=== PATIENT | male | born 1935 | race Caucasian/White ===

== ENCOUNTER 2018-04-29 22:14 | Inpatient (IN) | payer MEDICARE, OTHER, SELFPAY ==
[2018-04-29 22:23] VITALS: BP 155/84; PULSE 75; RESP 16; TEMP 36.6; O2SAT 97; BMI 24.3
--- NOTE | 2018-04-29 22:40 | DI.RAD.S_ITS ---
PROCEDURE: XR ACUTE ABDOMEN SERIES INDICATIONS: Abdominal pain TECHNIQUE: One view chest and two views of the abdomen were acquired. COMPARISON: [facility], CT, CT ABDOMEN PELVIS W CON, 04/29/2018, 23:28. [facility], CR, ABDOMEN ACUTE SERIES, 06/18/2009, 0:12. FINDINGS: Surgical changes and devices: None. Chest: Lungs are clear. Heart size is normal. No pleural effusions. No pneumoperitoneum. Abdomen: Dilated small bowel loops are noted in keeping with bowel obstruction. Please see comparison CT abdomen/pelvis for further characterization. No evidence of free air. Numerous surgical clips project in the pelvis. There is gastric distention. Bones: No suspicious bony lesions. Bilateral moderate hip joint degeneration and discogenic changes in the spine. There is lateral curvature of the spine. IMPRESSION: Small bowel obstruction. Dictated by: Tom Prather M.D. on 04/30/2018 at 9:45 Approved by: Tom Prather M.D. on 04/30/2018 at 9:47
[2018-04-29 22:51] VITALS: BP 173/81; PULSE 66; RESP 14; O2SAT 96
[2018-04-29] MEDS: SODIUM CHLORIDE 0.9% 1,000 ML 150 ML IV (23:00)
[2018-04-29 23:03] LABS: Add Manual Diff / Slide Review NO; Basophils Percent Auto 0.4 % (0-2); Eosinophils Percent Auto 1.2 % (2-4); Hematocrit 41.1 % (41-53); Hemoglobin 13.9 g/dL (13.5-17.5); Lymphocytes Percent Auto 19.3 % (25-40); Mean Corpuscular HGB Conc 33.8 % (30-36); Mean Corpuscular Hemoglobin 29.9 PG (26-34); Mean Corpuscular Volume 88.4 fL (80-100); Monocytes Percent Auto 7.6 % (3-14); Neutrophils Absolute Auto 7900 /uL (3000-5900); Neutrophils Percent Auto 71.5 % (50-75); Platelet Count 225 X10^3/uL (150-400); Red Blood Cell Count 4.64 X10^6/uL (4.5-5.9); Red Cell Distribution Width 12.4 % (11.6-14.8); White Blood Cell Count 11.1 X10^3/uL (4.5-11.0)
[2018-04-29 23:08] LABS: Alanine Aminotransferase 27 IU/L (21-72); Albumin 4.3 g/dL (3.5-5.0); Albumin Globulin Ratio 1.5 (1.0-2.8); Alkaline Phosphatase 40 U/L (38-126); Aspartate Aminotransferase 17 IU/L (17-59); BUN Creatinine Ratio 22.2 (6-22); Bilirubin Total 0.8 mg/dL (0.2-1.3); Blood Urea Nitrogen 20 mg/dL (9-20); Calcium 9.7 mg/dL (8.4-10.2); Carbon Dioxide 31 mmol/L (22-32); Chloride 98 mmol/L (98-107); Estimated Glomerular Filt Rate > 60.0 mL/min (>60); Globulin 2.9 g/dL (1.7-4.1); Glucose 100 mg/dL (80-110); HEMOLYSIS < 15 (0-50); Lipase 124 U/L (23-300); Potassium 3.6 mmol/L (3.4-5.1); Sodium 139 mmol/L (137-145); Total Protein 7.2 g/dL (6.3-8.2)
--- NOTE | 2018-04-29 23:27 | DI.CT.S_ITS ---
PROCEDURE: CT ABDOMEN PELVIS W CON INDICATIONS: severe abdominal pain, distended TECHNIQUE: After the administration of intravenous contrast, 5 mm thick sections acquired from the diaphragm to the symphysis. 5 mm coronal and sagittal reformats were acquired. For radiation dose reduction, the following was used: automated exposure control, adjustment of mA and/or kV according to patient size. COMPARISON: [facility], CT, ABDOMEN/PELVIS WITH CONTRAST, 02/13/2014, 9:03. FINDINGS: Image quality: Excellent. ABDOMEN: Lung bases: Lung bases are clear. Heart size is normal. Solid organs: Liver is normal in size and enhancement. Gallbladder contains a 5 mm minimally radiopaque calculus seen on image 20 otherwise unremarkable. Biliary system is non dilated. Pancreas enhances normally. Spleen is normal in size and enhancement. No adrenal nodules. Kidneys demonstrate normal size and enhancement, without hydronephrosis. Subcentimeter presumed left renal cyst although technically too small to characterize definitively. Peritoneum and bowel: The stomach is markedly distended. No free fluid or free air. There are multiple dilated small bowel loops and scattered air-fluid levels. These measure up to approximately 4.0 cm. An exact transition point is not identified although there are some relatively decompressed ileal bowel loops. Incidental duodenal diverticulum seen. The colon is relatively decompressed. Nodes and vessels: No retroperitoneal or mesenteric adenopathy by size criteria. Aorta and inferior vena cava are normal in size. Miscellaneous: Diastasis of the rectus abdominal muscles and broad-based laxity of the anterior abdominal wall and broad-based midline ventral hernia which contains bowel loops. PELVIS: Genitourinary: Bladder wall thickness is normal. Miscellaneous: Fat-containing bilateral inguinal hernias, right greater than left. No pelvic adenopathy. Bones: No suspicious bony lesions. No vertebral body compression fractures. IMPRESSION: Small bowel obstruction. The exact transition site is unclear. Diastasis of the rectus abdominis muscles with broad based small bowel hernia although this is grossly unchanged since 02/13/14. Unremarkable appendix. Incidental cholelithiasis. Additional chronic and incidental findings as above. Dictated by: Tom Prather M.D. on 04/30/2018 at 9:37 Approved by: Tom Prather M.D. on 04/30/2018 at 9:45
[2018-04-29 23:40] VITALS: PULSE 66; RESP 12; O2SAT 96
[2018-04-30] VITALS (8 sets, daily range): BP systolic 146–167; BP diastolic 69–101; PULSE 63–88; RESP 12–18; TEMP 36.4–36.9; O2SAT 93–99; BMI 22.2
[2018-04-30] MEDS: HYDROMORPHONE 1 MG INJ 0.5 MG IV (00:24)
--- NOTE | 2018-04-30 00:33 | ED_ITS ---
HPI - Abdominal Pain General Chief Complaint: Abdominal Pain Stated Complaint: STATES BOWEL OBSTRUCTION Time Seen by Provider: 04/29/18 22:20 Source: patient Mode of arrival: ambulatory Limitations: no limitations History of Present Illness HPI narrative: 82-year-old male presents to the emergency department with chief complaint of gradually worsening abdominal pain over the course of the day. His last bowel movement was yesterday. He admits to nausea but denies vomiting. He states that eating makes the pain worse. He denies fever or chills. MD complaint: abdominal pain Onset (ago): hour(s) Pain Consistency: constant Location: diffuse Severity: moderate Quality: cramping Radiation: none Migration to: no migration Relieving factors: nothing Exacerbating factors: nothing Related Data Home Medications Medication Instructions Recorded Confirmed alprazolam 0.5 mg PO HSP PRN 04/29/18 04/29/18 magnesium hydroxide [Milk of 5 ml PO TID PRN 04/29/18 04/29/18 Magnesia] metoprolol tartrate 12.5 mg PO BID 04/29/18 04/29/18 valsartan 80 mg PO DAILY 04/29/18 04/29/18 Previous Rx's Medication Instructions Recorded atorvastatin [Lipitor] 20 mg PO HS #90 tab 05/03/17 diltiazem HCl 180 mg PO QAM #90 cap 12/22/17 Allergies Allergy/AdvReac Type Severity Reaction Status Date / Time fluconazole Allergy Severe ANGIOEDEMA Verified 04/29/18 22:23 ciprofloxacin Allergy Mild RASH Verified 04/29/18 22:23 fluticasone Allergy Mild Verified 04/29/18 22:23 sulfamethoxazole Allergy Mild Verified 04/29/18 22:23 [From Bactrim] trimethoprim [From Bactrim] Allergy Mild Verified 04/29/18 22:23 metronidazole AdvReac Intermediate NEUROPATHY, Verified 04/29/18 22:23 PAIN IN EXTREMITIES cefuroxime AdvReac Mild PALPITATION Verified 04/29/18 22:23 S Review of Systems Review of Systems All systems reviewed & are unremarkable except as noted in HPI and below Constitutional Denies chills, Denies fever(s), Denies lethargy and Denies weakness Eyes Denies change in vision, Denies eye discharge, Denies irritation and Denies loss of vision ENT Ears, Nose, Mouth, and Throat: Denies change in voice, Denies neck pain and Denies sore throat Cardiovascular Denies chest pain, Denies irregular heart rhythm, Denies lightheadedness, Denies palpitations, Denies dyspnea, Denies dyspnea on exertion and Denies orthopnea Respiratory Denies cough, Denies dyspnea, Denies dyspnea on exertion and Denies wheezing Gastrointestinal Gastrointestinal: Reports abdominal pain, Denies change in bowel habits, Denies diarrhea, Reports nausea and Denies vomiting Comments: Patient states he is not passing gas Genitourinary Denies hematuria, Denies flank pain, Denies urinary incontinence and Denies urinary urgency Musculoskeletal Denies neck pain Integumentary/Breasts Denies pruritus, Denies erythema, Denies rash and Denies wounds Neurologic Denies confusion, Denies loss of vision and Denies weakness Psychiatric Denies anxiety, Denies confusion, Denies depression, Denies homicidal ideation and Denies suicidal ideation Endocrine Denies palpitations Hematologic/Lymphatic Denies easy bruising Allergic/Immunologic Denies wheezing [facility] Medical History Pacemaker (Acute ~12/16/17) Surgical History Status post colectomy Social History Smoking Status: Former smoker Exam Narrative Exam Narrative: Pleasant 82-year-old male obviously uncomfortable, clutching his abdomen Initial Vital Signs Initial Vital Signs: Vital Signs Temperature 97.8 F 04/29/18 22:23 Pulse Rate 75 04/29/18 22:23 Respiratory Rate 16 04/29/18 22:23 Blood Pressure 155/84 H 04/29/18 22:23 Pulse Oximetry 97 04/29/18 22:23 Const General: cooperative, well developed and in distress Nutritional Appearance: well nourished Orientation: alert, awake, oriented x3 and not confused [facility] Head: normocephalic and atraumatic Ears: external ears normal and TM's normal bilaterally Nose: external nose normal and No nasal discharge Face and sinus: sinuses nontender, face symmetric, no sinus tenderness and No dry mucous membranes Mouth: oral mucosae normal and moist mucous membranes Teeth and gingiva: dentition normal Throat: tonsils normal and uvula midline Chest Chest: normal inspection of the chest Cardio Rate: regular rate Rhythm: regular rhythm Heart Sounds: no click, no gallops, no murmurs and no rubs Pulses: normal peripheral pulses GI Inspection: distended Palpation: soft, no hepatosplenomegaly, guarding, No pulsatile mass and tender Auscultation: high-pitched sounds Back/Spine/Pelvis Back: No CVA tenderness Cervical Spine: cervical ROM normal and No pain with cervical ROM Thoracic/Lumbar Spine: thoracic and lumbar spine normal to inspection Course Orders Ordered: ED Orders 04/29/18 22:40 XR acute abdomen series Stat 04/29/18 22:45 Complete Blood Count AUTO DIFF Stat Comprehensive Metabolic Panel Stat Lipase Stat 04/29/18 23:27 CT abdomen pelvis w con Stat Sodium Chloride (Normal Saline 0.9%) 1,000 mls @ 150 mls/hr IV CONT JIAN Last Admin: 04/29/18 23:00 Dose: 150 mls/hr Discontinued Medications Hydromorphone HCl (Dilaudid) 0.5 mg IV NOW ONE Stop: 04/30/18 00:24 Last Admin: 04/30/18 00:24 Dose: 0.5 mg Reevaluation(s) Reevaluation #1: Patient has NG tube placed and feels much better Consultations Consultation #1: Dr. Stallworth is happy to accept on her service Vital Signs - 8 hr 04/29/18 22:23 04/29/18 22:51 04/29/18 23:40 Temperature 97.8 F Pulse Rate 75 66 66 Respiratory Rate 16 14 12 Blood Pressure 155/84 H Blood Pressure [Right Arm] 173/81 H Pulse Oximetry 97 96 96 04/30/18 00:25 04/30/18 01:10 Temperature Pulse Rate 68 63 Respiratory Rate 12 12 Blood Pressure Blood Pressure [Right Arm] 155/76 H 156/72 H Pulse Oximetry 98 93 MDM - Abdominal Pain Differential Diagnosis Differential diagnosis: Likely abdominal pain, acute appendicitis, calculus of kidney, constipation, diverticulitis, gastroenteritis, pancreatitis and small bowel obstruction Medical Records Attestation: I reviewed the patient's medical records. Lab Data Attestation: I reviewed the patient's lab results. Result diagrams: 04/29/18 22:45 04/29/18 22:45 Lab Results 04/29/18 04/29/18 Range/Units 22:45 22:45 WBC 11.1 H (4.5-11.0) X10^3/uL RBC 4.64 (4.5-5.9) X10^6/uL Hgb 13.9 (13.5-17.5) g/dL Hct 41.1 (41-53) % MCV 88.4 (80-100) fL MCH 29.9 (26-34) PG MCHC 33.8 (30-36) % RDW 12.4 (11.6-14.8) % Plt Count 225 (150-400) X10^3/uL Neut % (Auto) 71.5 (50-75) % Lymph % (Auto) 19.3 L (25-40) % [place] % (Auto) 7.6 (3-14) % Eos % (Auto) 1.2 L (2-4) % Baso % (Auto) 0.4 (0-2) % Neut # (Auto) 7900 H (8005-5688) /uL Sodium 139 (137-145) mmol/L Potassium 3.6 (3.4-5.1) mmol/L Chloride 98 (98-107) mmol/L Carbon Dioxide 31 (22-32) mmol/L BUN 20 (9-20) mg/dL Creatinine 0.90 (0.66-1.25) mg/dL Estimated GFR > 60.0 (>60) mL/min BUN/Creatinine Ratio 22.2 H (6-22) Glucose 100 (80-110) mg/dL Calcium 9.7 (8.4-10.2) mg/dL Total Bilirubin 0.8 (0.2-1.3) mg/dL AST 17 (17-59) IU/L ALT 27 (21-72) IU/L Alkaline Phosphatase 40 (38-126) U/L Total Protein 7.2 (6.3-8.2) g/dL Albumin 4.3 (3.5-5.0) g/dL Globulin 2.9 (1.7-4.1) g/dL Albumin/Globulin Ratio 1.5 (1.0-2.8) Lipase 124 (23-300) U/L Imaging Data CT scan - abdomen: Radiologist's impression: Findings consistent was distal small-bowel obstruction, suspecting an obstructing adhesion the pelvis along the anterior peritoneal wall. Discharge Plan Departure Patient Disposition: Admitted As Inpatient Clinical Impression: Partial small bowel obstruction
--- NOTE | 2018-04-30 00:53 | PC.NURSE ---
NGT to left nare. Tolerated well. Placement checked by auscultation and + gastric contents.
--- NOTE | 2018-04-30 04:29 | PC.ADMIT ---
[email or web address] Admission Note: The patient,Conrado Hobbs,82 y/o, was given written information regarding hospital policies, unit procedures and contact persons. Patient's smoking status: Former smoker. Vital Signs - 8 hr 04/29/18 22:23 04/29/18 22:51 04/29/18 23:40 Temperature 97.8 F Pulse Rate 75 66 66 Respiratory Rate 16 14 12 Blood Pressure 155/84 H Blood Pressure [Right Arm] 173/81 H Pulse Oximetry 97 96 96 04/30/18 00:25 04/30/18 01:10 04/30/18 02:12 Temperature Pulse Rate 68 63 64 Respiratory Rate 12 12 15 Blood Pressure Blood Pressure [Right Arm] 155/76 H 156/72 H 167/69 H Pulse Oximetry 98 93 95 04/30/18 03:20 Temperature 98.4 F Pulse Rate 75 Respiratory Rate 18 Blood Pressure 158/89 H Blood Pressure [Right Arm] Pulse Oximetry
--- NOTE | 2018-04-30 04:29 | PC.ADMIT ---
[email or web address] N 1[address] STPt Admission Note: The patient,Conrado Hobbs,82 y/o, was given written information regarding hospital policies, unit procedures and contact persons. Patient's smoking status: Former smoker. Vital Signs - 8 hr 04/29/18 22:23 04/29/18 22:51 04/29/18 23:40 Temperature 97.8 F Pulse Rate 75 66 66 Respiratory Rate 16 14 12 Blood Pressure 155/84 H Blood Pressure [Right Arm] 173/81 H Pulse Oximetry 97 96 96 04/30/18 00:25 04/30/18 01:10 04/30/18 02:12 Temperature Pulse Rate 68 63 64 Respiratory Rate 12 12 15 Blood Pressure Blood Pressure [Right Arm] 155/76 H 156/72 H 167/69 H Pulse Oximetry 98 93 95 04/30/18 03:20 Temperature 98.4 F Pulse Rate 75 Respiratory Rate 18 Blood Pressure 158/89 H Blood Pressure [Right Arm] Pulse Oximetry Pt arrived to room 215 from the ER via stretcher, able to transfer himself to the bed indep. Oriented x3, reports mild dementia. Pt arrived with an NG tube, once put to LIS suction appr 250ml out immediately of light brown/yellow drainage. Abdomen is soft and distended, active BT's, denies flatus and nausea. Aware that a Dilaudid CHIEF KNOWLEDGE OFFICER is available, pt denies pain and does not think he needs a CHIEF KNOWLEDGE OFFICER at this time. RA sats 95%. Pt reports that he ambulates indep at home, denies falls. Pt oriented to room and call light, bed alarm on for safety.
[2018-04-30] MEDS: SODIUM CHLORIDE 0.9% 1,000 ML 150 ML IV (06:12)
--- NOTE | 2018-04-30 09:26 | P.HP_ITS ---
History of Present Illness Date Patient Seen: 04/30/18 Time Patient Seen: 09:15 Chief complaint: STATES BOWEL OBSTRUCTION Narrative: 82-year-old man without a primary care provider presented with a 1 day history of abdominal pain and nausea without vomiting, fevers or chills. His last bowel movement was 2 days ago. He denies any recent precipitating factors, though states he has had bowel obstructions in the past related to his previous left colon resection. He reports feeling much improved over night. Abdomen CT reported findings consistent was distal small-bowel obstruction, suspecting an obstructing adhesion the pelvis along the anterior peritoneal wall. Past medical history Hypertension Hyperlipidemia Pacemaker placement Status post colectomy Patient History Medical History Pacemaker (Acute ~12/16/17) Surgical History Status post colectomy Family & Social History Family History: Reviewed 04/30/18 by Conrado Felton MD Social History: household members other Prior Living Arrangements Custodial Facility Safety & Behavioral: Feels Safe in Current Yes Environment Been Physically Hurt or No Threatened By a Person Suicidal Ideation Description None Tobacco & Substance use: Smoking Status Former smoker alcohol intake frequency 0-2 drinks per day Substance Use Type does not use Meds Home Medications Medication Instructions Recorded Confirmed Type atorvastatin [Lipitor] 20 mg PO HS #90 tab 05/03/17 04/29/18 Rx diltiazem HCl 180 mg PO QAM #90 cap 12/22/17 04/29/18 Rx alprazolam 0.5 mg PO HSP PRN 04/29/18 04/29/18 History magnesium hydroxide [Milk of 5 ml PO TID PRN 04/29/18 04/30/18 History Magnesia] metoprolol tartrate 12.5 mg PO BID 04/29/18 04/29/18 History valsartan 80 mg PO DAILY 04/29/18 04/29/18 History Allergies Allergy/AdvReac Type Severity Reaction Status Date / Time fluconazole Allergy Severe ANGIOEDEMA Verified 04/29/18 22:23 ciprofloxacin Allergy Mild RASH Verified 04/29/18 22:23 fluticasone Allergy Mild Verified 04/29/18 22:23 sulfamethoxazole Allergy Mild Verified 04/29/18 22:23 [From Bactrim] trimethoprim [From Bactrim] Allergy Mild Verified 04/29/18 22:23 metronidazole AdvReac Intermediate NEUROPATHY, Verified 04/29/18 22:23 PAIN IN EXTREMITIES cefuroxime AdvReac Mild PALPITATION Verified 04/29/18 22:23 S Review of Systems Review of Systems All systems reviewed & are unremarkable except as noted in HPI and below Exam Vital Signs (past 8 hours): - 04/30/18 02:12 04/30/18 03:20 04/30/18 07:00 Temperature 98.4 F 97.5 F L Pulse Rate 64 75 84 Respiratory Rate 15 18 16 Blood Pressure 158/89 H 157/83 H Blood Pressure [Right Arm] 167/69 H Pulse Oximetry 95 96 Oxygen Delivery Method Room Air Narrative Exam Narrative: General: Alert, pleasant male, appears comfortable HEENT: Pupils equal round reactive, extraocular movements intact, mucous membranes pink and moist Neck: Supple Lungs: Clear to auscultation Cardiac: Regular rate and rhythm Abdomen: Soft, mildly distended, though patient states much improved overnight , active bowel tones, nontender, no guarding, rebound or rigidity Extremities: Without edema Neurologic: Alert, oriented, appropriate, no focal neurologic deficits Dermatologic: No rash or skin lesions Objective Labs Result Diagrams: 04/29/18 22:45 04/29/18 22:45 Labs: Laboratory Results - last 24 hr 04/29/18 04/29/18 22:45 22:45 WBC 11.1 H RBC 4.64 Hgb 13.9 Hct 41.1 MCV 88.4 MCH 29.9 MCHC 33.8 RDW 12.4 Plt Count 225 Neut % (Auto) 71.5 Lymph % (Auto) 19.3 L [place] % (Auto) 7.6 Eos % (Auto) 1.2 L Baso % (Auto) 0.4 Neut # (Auto) 7900 H Sodium 139 Potassium 3.6 Chloride 98 Carbon Dioxide 31 BUN 20 Creatinine 0.90 Estimated GFR > 60.0 BUN/Creatinine Ratio 22.2 H Glucose 100 Calcium 9.7 Total Bilirubin 0.8 AST 17 ALT 27 Alkaline Phosphatase 40 Total Protein 7.2 Albumin 4.3 Globulin 2.9 Albumin/Globulin Ratio 1.5 Lipase 124 Assessment & Plan Plan: Assessment/Plan Narrative: 1. Partial small bowel obstruction. The patient reports feeling significantly better. We will remove his nasogastric tube, monitor and possibly advance to a clear liquid diet later this morning is doing well. 2. Hypertension. Continue routine medication. 3. Hyperlipidemia. Continue routine medication. 4. Disposition: Admit to observation status. Possible discharge home tomorrow if doing well.
[2018-04-30] MEDS: dilTIAZem CD 180 MG CAP PO (10:38)
--- NOTE | 2018-04-30 10:45 | PC.NURSE ---
NT TUBE REMOVED PER MD ORDER AT 0930. PER MD MAY HAVE CLEAR LIQUID DIET STARTING WITH LUNCH TODAY. PT AWARE.
--- NOTE | 2018-04-30 13:13 | CM.DANOTE ---
DCP: Case received, EMR reviewed and met with patient. Introduced self and role. DCP template completed with info currently available. Patient is an 82 year old male who admitted yesterday evening to the care of hospitalist team. PCP: Patient does not have a provider at this time, but did have Dr. Hendrix, and since he retired, patient did not pursue new physician. Payer: confirmed: Medicare/[employer]. Patient carries diagnosis of small bowel obstruction, and has had history of this before. Resides at [facility], and is planning on returning there after discharge. Patient stated that he had taken a taxi last pm to get to hospital from [facility], secondary to abdominal pain. P: DCP will check in tomorrow, as far as discharging back to [facility] home. Did speak to daughter, she is now living in [place]. Christiane Martin RN/Minister Of Religion
--- NOTE | 2018-04-30 15:29 | CM.DPC ---
DCP Cont: Met with daughter in patient's room. Stated that he should be able to return to [facility], but may be thinking about moving to [facility]. Daughter now lives in [place], is a retired nurse who used to reside in [place]. P: Will check in tomorrow, and consult with hospitalist team if patient is to be discharged tomorrow. Christiane Martin RN/air traffic control manager
[2018-04-30] MEDS: METOPROLOL 12.5 MG TABLET PO (19:55)
[2018-04-30] MEDS: ATORVASTATIN 20 MG TABLET PO (19:55)
[2018-05-01 00:20] VITALS: BP 146/77; PULSE 71; RESP 17; TEMP 36.8; O2SAT 95
[2018-05-01] MEDS: ACETAMINOPHEN 325 MG TABLET 650 MG PO (02:48)
[2018-05-01 05:13] VITALS: BP 145/72; PULSE 66; RESP 17; TEMP 36.4; O2SAT 93
[2018-05-01 05:56] LABS: Add Manual Diff / Slide Review NO; Basophils Percent Auto 0.6 % (0-2); Eosinophils Percent Auto 4.1 % (2-4); Hematocrit 38.1 % (41-53); Hemoglobin 12.9 g/dL (13.5-17.5); Mean Corpuscular HGB Conc 33.8 % (30-36); Mean Corpuscular Hemoglobin 30.3 PG (26-34); Mean Corpuscular Volume 89.6 fL (80-100); Monocytes Percent Auto 11.3 % (3-14); Neutrophils Absolute Auto 3700 /uL (3000-5900); Platelet Count 184 X10^3/uL (150-400); Red Blood Cell Count 4.25 X10^6/uL (4.5-5.9); Red Cell Distribution Width 12.4 % (11.6-14.8); White Blood Cell Count 6.6 X10^3/uL (4.5-11.0)
[2018-05-01 06:12] LABS: BUN Creatinine Ratio 12.9 (6-22); Blood Urea Nitrogen 9 mg/dL (9-20); Calcium 8.3 mg/dL (8.4-10.2); Carbon Dioxide 29 mmol/L (22-32); Chloride 104 mmol/L (98-107); Estimated Glomerular Filt Rate > 60.0 mL/min (>60); Glucose 101 mg/dL (80-110); HEMOLYSIS < 15 (0-50); Potassium 3.6 mmol/L (3.4-5.1); Sodium 140 mmol/L (137-145)
[2018-05-01 07:51] VITALS: BP 153/71; PULSE 73; RESP 18; TEMP 36.6; O2SAT 99
--- NOTE | 2018-05-01 07:51 | PC.NURSE ---
Day Shift: Report received from transport operations inspector RN and care assumed by this RN. Patient pleasant, doing well. States he is hungry and wants to go home today. Patient reports having BM last shift. Denies pain. Will continue to monitor.
--- NOTE | 2018-05-01 08:09 | PM.DS.1 ---
History of Present Illness Date Patient Seen: 05/01/18 Time Patient Seen: 07:50 Chief complaint: STATES BOWEL OBSTRUCTION Narrative: 82-year-old man without a primary care provider presented with a 1 day history of abdominal pain and nausea without vomiting, fevers or chills. His last bowel movement was 2 days ago. He denies any recent precipitating factors, though states he has had bowel obstructions in the past related to his previous left colon resection. He reports feeling much improved over night. Abdomen CT reported findings consistent was distal small-bowel obstruction, suspecting an obstructing adhesion the pelvis along the anterior peritoneal wall. Discharge Providers Date of admission: 04/30/18 02:14 Primary care physician: Leonel Hendrix MD Discharge provider: Conrado Felton MD Summary Discharge Diagnosis: 1. Partial small bowel obstruction 2. Hypertension 3. Hyperlipidemia Hospital Course: The patient was admitted and started on a program of bowel rest and nasogastric tube decompression. Within hours, he started to pass flatus. His nasogastric tube was removed and IV fluids stopped, and the patient advanced to a clear liquid diet. He was feeling significantly better and by the following morning able to advance to a full liquid diet. He was interested in discharge home. No other issues arose. Status at Discharge Functional status at discharge: independent ambulation Overall status at discharge: patient is back to baseline Time Spent with Patient Less than 30 minutes Exam Vital Signs (past 8 hours): - 05/01/18 00:20 05/01/18 05:13 05/01/18 07:51 Temperature 98.3 F 97.6 F 97.9 F Pulse Rate 71 66 73 Respiratory Rate 17 17 18 Blood Pressure 146/77 H 145/72 H 153/71 H Pulse Oximetry 95 93 99 Oxygen Delivery Method Room Air Narrative Exam Narrative: General: Patient appears comfortable, in good spirits HEENT: Mucous membranes pink and moist Neck: Supple Lungs: Clear to auscultation Cardiac: Regular rate and rhythm Abdomen: Soft, nontender, nondistended, active bowel sounds Extremities: Without edema Objective Labs Result Diagrams: 05/01/18 05:40 05/01/18 05:40 Labs: Laboratory Results - last 24 hr 05/01/18 05/01/18 05:40 05:40 WBC 6.6 RBC 4.25 L Hgb 12.9 L Hct 38.1 L MCV 89.6 MCH 30.3 MCHC 33.8 RDW 12.4 Plt Count 184 Neut % (Auto) 57.0 Lymph % (Auto) 27.0 [place] % (Auto) 11.3 Eos % (Auto) 4.1 H Baso % (Auto) 0.6 Neut # (Auto) 3700 Sodium 140 Potassium 3.6 Chloride 104 Carbon Dioxide 29 BUN 9 Creatinine 0.70 Estimated GFR > 60.0 BUN/Creatinine Ratio 12.9 Glucose 101 Calcium 8.3 L Discharge Plan Discharge Plan Patient Disposition: Home, Self-Care Provider Discharge Instructions Diet: Diet as Tolerated and Regular Diet comment: Advance from soft low fiber foods to usual diet over 1 week Wound Care Report to your healthcare provider any signs of infection, such as:: chills, fever, night sweats and increased pain Discharge Data Primary Care Provider: Leonel Hendrix Attending Provider: Estephanie Stallworth Admit Date/Time: 04/30/18 02:14
[2018-05-01] MEDS: dilTIAZem CD 180 MG CAP PO (08:34)
[2018-05-01] MEDS: VALSARTAN 80 MG TABLET PO (08:34)
[2018-05-01] MEDS: METOPROLOL 12.5 MG TABLET PO (08:34)
--- NOTE | 2018-05-01 12:04 | CM.DPC ---
DCP Cont: Patient is to be discharged today back home to [facility], as patient is back to baseline. P: Daughter will be here to transport patient. Christiane Martin RN/Putty And Caulking Supervisor
== END 2018-05-01 10:30 | disposition home or self-care (01) | DRG 390 ==
LOC: ED 04-30 00:33 → AC 04-30 02:16
PROVIDERS: Internal Medicine; Admitting Provider Internal Medicine; Emergency Provider Emergency Medicine; Family Provider Family Medicine; PCP Family Medicine; Visit Provider Internal Medicine
DX: K56.600 Partial intestinal obstruction, unspecified as to cause (principal); I10 Essential (primary) hypertension; E78.5 Hyperlipidemia, unspecified; Z95.0 Presence of cardiac pacemaker; Z87.891 Personal history of nicotine dependence
CPT/HCPCS: 36415; 36591; 74022; 74177; 80048; 80053; 83690; 85025; 93005; 96361; 96374; 96375; 99283; 99285; J1170; Q9967

== ENCOUNTER → 2018-07-14 15:02 | Outpatient (CLI) | payer MEDICARE, OTHER, SELFPAY ==
[2018-04-30 03:02] VITALS: BMI 22.2
[2018-07-14 16:28] LABS: Alanine Aminotransferase 24 IU/L (21-72); Albumin 4.1 g/dL (3.5-5.0); Albumin Globulin Ratio 1.5 (1.0-2.8); Alkaline Phosphatase 39 U/L (38-126); Aspartate Aminotransferase 21 IU/L (17-59); Bilirubin Total 0.6 mg/dL (0.2-1.3); Blood Urea Nitrogen 23 mg/dL (9-20); Calcium 9.4 mg/dL (8.4-10.2); Carbon Dioxide 33 mmol/L (22-32); Chloride 100 mmol/L (98-107); Estimated Glomerular Filt Rate > 60.0 mL/min (>60); Globulin 2.8 g/dL (1.7-4.1); Glucose 95 mg/dL (80-110); HEMOLYSIS < 15 (0-50); Sodium 143 mmol/L (137-145); Total Protein 6.9 g/dL (6.3-8.2)
== END ==
PROVIDERS: Visit Provider Nurse Practitioner Family
DX: I10 Essential (primary) hypertension (principal); R60.9 Edema, unspecified
CPT/HCPCS: 36415; 80053

== ENCOUNTER 2018-08-16 08:19 | Emergency (ER) | payer MEDICARE, OTHER, SELFPAY ==
[2018-04-30 03:02] VITALS: BMI 22.2
[2018-08-16 08:25] VITALS: BP 166/88; PULSE 85; RESP 13; TEMP 36.6; O2SAT 99
--- NOTE | 2018-08-16 09:30 | ED_ITS ---
HPI - Abdominal Pain General Chief Complaint: Abdominal Pain Stated Complaint: Abdominal Pain Time Seen by Provider: 08/16/18 08:27 Source: patient Mode of arrival: ambulatory Limitations: no limitations History of Present Illness HPI narrative: 83-year-old male here for evaluation of left-sided abdominal pain. Patient states he has a history of diverticulitis. Has had a descending colon resection with reanastomosis. He states that over the past month he has had increasing pain in his left side with eating. It does not seem to hurt him when he drinks fluids. No tenderness to palpation. No change in bowel habits. No urinary symptoms. No fevers. Related Data Home Medications Medication Instructions Recorded Confirmed alprazolam 0.5 mg PO HSP PRN 04/29/18 08/16/18 magnesium hydroxide [Milk of 5 ml PO TID PRN 04/29/18 08/16/18 Magnesia] metoprolol tartrate 12.5 mg PO BID 04/29/18 08/16/18 valsartan 80 mg PO DAILY 04/29/18 08/16/18 furosemide 20 mg tablet 20 mg PO DAILY 07/14/18 08/16/18 zolpidem 1 tab PO BEDTIME 08/16/18 08/16/18 Previous Rx's Medication Instructions Recorded atorvastatin [Lipitor] 20 mg PO HS #90 tab 05/03/17 diltiazem HCl 180 mg PO QAM #90 cap 12/22/17 amoxicillin 875 mg-potassium 1 tab PO BID 7 Days #14 tab 08/10/18 clavulanate 125 mg tablet Allergies Allergy/AdvReac Type Severity Reaction Status Date / Time fluconazole Allergy Severe ANGIOEDEMA Verified 08/04/18 08:54 ciprofloxacin Allergy Mild RASH Verified 08/04/18 08:54 fluticasone Allergy Mild Verified 08/04/18 08:54 sulfamethoxazole Allergy Mild Verified 08/04/18 08:54 [From Bactrim] trimethoprim [From Bactrim] Allergy Mild Verified 08/04/18 08:54 metronidazole AdvReac Intermediate NEUROPATHY, Verified 08/04/18 08:54 PAIN IN EXTREMITIES cefuroxime AdvReac Mild PALPITATION Verified 08/04/18 08:54 S Review of Systems Constitutional Denies fever(s) and Denies headache(s) ENT Ears, Nose, Mouth, and Throat: Denies vertigo and Denies headache(s) Cardiovascular Denies chest pain, Denies syncope and Denies dyspnea Respiratory Denies dyspnea Gastrointestinal Gastrointestinal: Reports abdominal pain, Denies change in stool character, Denies nausea and Denies vomiting Genitourinary Denies dysuria Musculoskeletal Denies myalgias and Denies arthralgias Integumentary/Breasts Denies lesions and Denies rash Neurologic Denies vertigo, Denies syncope and Denies headache(s) Hematologic/Lymphatic Denies easy bleeding and Denies easy bruising [facility] Medical History Pacemaker (Chronic ~12/16/17) Diverticulitis (Acute) Surgical History Status post colectomy Social History household members: other Smoking Status: Former smoker Exam Initial Vital Signs Initial Vital Signs: Vital Signs Temperature 98 F 08/16/18 08:25 Pulse Rate 85 08/16/18 08:25 Respiratory Rate 13 08/16/18 08:25 Blood Pressure 166/88 H 08/16/18 08:25 Pulse Oximetry 99 08/16/18 08:25 Const General: cooperative and comfortable Orientation: alert, awake and oriented x3 HENMT Head: normal to inspection and normocephalic Resp Effort & Inspection: normal respiratory effort Auscultation: clear to auscultation bilaterally Cardio Rate: regular rate Rhythm: regular rhythm GI Inspection: non-distended Palpation: soft, No firm, No guarding and No tender Skin Lesions: no lesions Rashes: no rashes Neuro General: alert, awake and oriented x3 Cognition: normal cognition Speech: speech normal Motor: muscle tone normal throughout Sensory Exam: no sensory deficits noted Extrem General: normal to inspection and capillary refill normal Psych Appearance: grossly normal and well kempt Course Orders Ordered: ED Orders 08/16/18 09:51 Complete Blood Count AUTO DIFF Stat Comprehensive Metabolic Panel Stat Lactate (Lactic Acid) Stat Lipase Stat 08/16/18 10:17 CT abdomen pelvis w con Stat Discontinued Medications Sodium Chloride (Normal Saline 0.9%) 1,000 mls @ 1,000 mls/hr IV BOLUS ONE Stop: 08/16/18 09:43 Last Admin: 08/16/18 09:34 Dose: 1,000 mls/hr Vital Signs - 8 hr 08/16/18 08:25 08/16/18 10:13 Temperature 98 F Pulse Rate 85 70 Respiratory Rate 13 14 Blood Pressure 166/88 H Blood Pressure [Left Arm] 175/72 H Pulse Oximetry 99 98 MDM - Abdominal Pain Lab Data Attestation: I reviewed the patient's lab results. Result diagrams: 08/16/18 09:51 08/16/18 09:51 Lab Results 08/16/18 08/16/18 08/16/18 Range/Units 09:51 09:51 09:51 WBC 4.5 (4.5-11.0) X10^3/uL RBC 4.57 (4.5-5.9) X10^6/uL Hgb 13.7 (13.5-17.5) g/dL Hct 40.3 L (41-53) % MCV 88.3 (80-100) fL MCH 29.9 (26-34) PG MCHC 33.9 (30-36) % RDW 13.4 (11.6-14.8) % Plt Count 237 (150-400) X10^3/uL Neut % (Auto) 53.5 (50-75) % Lymph % (Auto) 31.9 (25-40) % [place] % (Auto) 9.7 (3-14) % Eos % (Auto) 4.4 H (2-4) % Baso % (Auto) 0.5 (0-2) % Neut # (Auto) 2400 L (9954-4229) /uL Sodium 141 (137-145) mmol/L Potassium 4.0 (3.4-5.1) mmol/L Chloride 101 (98-107) mmol/L Carbon Dioxide 29 (22-32) mmol/L BUN 13 (9-20) mg/dL Creatinine 1.00 (0.66-1.25) mg/dL Estimated GFR > 60.0 (>60) mL/min BUN/Creatinine Ratio 13.0 (6-22) Glucose 100 (80-110) mg/dL Lactate 1.3 (0.7-2.1) mmol/L Calcium 8.9 (8.4-10.2) mg/dL Total Bilirubin 0.9 (0.2-1.3) mg/dL AST 23 (17-59) IU/L ALT 33 (21-72) IU/L Alkaline Phosphatase 45 (38-126) U/L Total Protein 7.0 (6.3-8.2) g/dL Albumin 4.2 (3.5-5.0) g/dL Globulin 2.8 (1.7-4.1) g/dL Albumin/Globulin Ratio 1.5 (1.0-2.8) Lipase 91 (23-300) U/L Point of care testing: Urine Dip Bedside Urine Glucose Negative Bedside Urine Bilirubin - Negative Bedside Urine Ketone - Negative Urine Specific [place] 1.015 Bedside Urine Occult Blood - Negative Bedside Urine pH 8.0 Bedside Urine Protein - Negative Bedside Urine Urobilinogen - Negative Bedside Urine Nitrite - Negative Imaging Data CT scan - abdomen: Radiologist's impression: PROCEDURE: CT ABDOMEN PELVIS W CON INDICATIONS: Left-sided abdominal pain TECHNIQUE: After the administration of intravenous contrast, 5 mm thick sections acquired from the diaphragm to the symphysis. 5 mm coronal and sagittal reformats were acquired. For radiation dose reduction, the following was used: automated exposure control, adjustment of mA and/or kV according to patient size. COMPARISON: [facility], CT, ABDOMEN/PELVIS WITH CONTRAST, 02/13/2014, 9: 03. [facility], CR, XR ACUTE ABDOMEN SERIES, 04/29/2018, 22:33. [facility], CT, CT ABDOMEN PELVIS W CON, 04/29/2018, 23:28. FINDINGS: Image quality: Excellent. ABDOMEN: Lung bases: Lung bases are clear. Heart size is normal. There is a cardiac pacemaker. Solid organs: Mild diffuse hepatic fatty infiltration. Liver is normal in size and enhancement. Gallbladder contains a calcified gallstone. Biliary system is non dilated. Punctate calcifications in the pancreatic tail are noted. Pancreas enhances normally. Spleen is normal in size and enhancement. There is left adrenal thickening and nodularity, unchanged. Kidneys demonstrate normal size and enhancement, without hydronephrosis. Peritoneum and bowel: Bowel loops demonstrate normal wall thickness and caliber. Fluid filled colon loops are noted. There are air fluid level in transverse colon and rectum. No free fluid or air. Normal appendix. Nodes and vessels: No retroperitoneal or mesenteric adenopathy by size criteria. Aorta and inferior vena cava are normal in size. Miscellaneous: Diastases of abdomen sheath and wide-necked ventral hernia appear unchanged. PELVIS: Genitourinary: Bladder wall thickness is normal. Absence of prostate. Miscellaneous: No inguinal adenopathy. Fat containing inguinal hernias are noted. Bones: No suspicious bony lesions. No vertebral body compression fractures. Degenerative changes in lumbar spine. IMPRESSION: 1. Fluid filled colon loops are noted with multiple air-fluid levels in the transverse colon and rectum. The CT findings are nonspecific and may be secondary to gastroenteritis. There is no colonic wall thickening to suggest colitis. No small bowel obstruction. 2. Cholelithiasis. 3. Punctate calcifications of the pancreatic tail, likely sequela of chronic pancreatitis. 4. Nodularity of the left adrenal gland. 5. Stable appearance of diastases of the rectus abdominis and wide necked ventral hernia. Dictated by: Gee Hahn M.D. on 08/16/2018 at 10:31 MDM Narrative Medical decision making narrative: patient has a relatively benign abdominal exam. Does not have an elevated white blood cell count. CT scan shows a colitis. He is currently on Augmentin for presumed diverticulitis. He has 1 more day left of this medication. He states that he has been on this antibiotic for the past 3 weeks prescribed by his primary doctor. Patient states he has not been having any diarrhea. No rashes. No fevers. He states that he does take milk of magnesia every night in order to maintain regular bowel movements. He did have a regular bowel movement this morning. There is no surgical findings found on the CT scan today. He is currently on antibiotics. No recent travel. He stated he could not provide us a stool sample here in the emergency department. Will hold on further workup for now. He was given return precautions. He was instructed to contact his primary doctor to discuss further evaluation and treatment. Discharge Plan Departure Patient Disposition: Home Clinical Impression: Colitis Instructions: DI for Colitis Activity Restrictions/Additional Instructions: I would recommend you contact your primary care doctor to discuss follow-up. Make sure your increasing your fluid intake to prevent dehydration. Return to the emergency department for any new or worsening symptoms Prescriptions: No Action atorvastatin [Lipitor] 20 MG tablet 20 mg PO HS Qty: 90 RF: 3 diltiazem HCl 180 MG capsule,extended release 24hr 180 mg PO QAM Qty: 90 RF: 2 amoxicillin-pot clavulanate [Augmentin] 875-125 mg tablet 1 tab PO BID 7 Days Qty: 14 RF: 0 furosemide [Lasix] 20 mg tablet 20 mg PO DAILY RF: 0 valsartan 80 mg tablet 80 mg PO DAILY RF: 0 magnesium hydroxide [Milk of Magnesia] 400 mg/5 mL Suspension 5 ml PO TID PRN (Reason: Constipation) RF: 0 alprazolam 0.5 MG tablet 0.5 mg PO HSP PRN (Reason: anxiety / sleep) RF: 0 metoprolol tartrate 25 MG tablet 12.5 mg PO BID RF: 0 zolpidem 5 mg tablet 1 tab PO BEDTIME RF: 0
[2018-08-16] MEDS: SODIUM CHLORIDE 0.9% 1,000 ML 1000 ML IV (09:34)
[2018-08-16 10:02] LABS: Add Manual Diff / Slide Review NO; Basophils Percent Auto 0.5 % (0-2); Eosinophils Percent Auto 4.4 % (2-4); Hematocrit 40.3 % (41-53); Hemoglobin 13.7 g/dL (13.5-17.5); Lymphocytes Percent Auto 31.9 % (25-40); Mean Corpuscular HGB Conc 33.9 % (30-36); Mean Corpuscular Hemoglobin 29.9 PG (26-34); Mean Corpuscular Volume 88.3 fL (80-100); Monocytes Percent Auto 9.7 % (3-14); Neutrophils Absolute Auto 2400 /uL (3000-5900); Neutrophils Percent Auto 53.5 % (50-75); Platelet Count 237 X10^3/uL (150-400); Red Blood Cell Count 4.57 X10^6/uL (4.5-5.9); Red Cell Distribution Width 13.4 % (11.6-14.8); White Blood Cell Count 4.5 X10^3/uL (4.5-11.0)
[2018-08-16 10:13] VITALS: BP 175/72; PULSE 70; RESP 14; O2SAT 98
[2018-08-16 10:15] LABS: Alanine Aminotransferase 33 IU/L (21-72); Albumin 4.2 g/dL (3.5-5.0); Albumin Globulin Ratio 1.5 (1.0-2.8); Alkaline Phosphatase 45 U/L (38-126); Aspartate Aminotransferase 23 IU/L (17-59); Bilirubin Total 0.9 mg/dL (0.2-1.3); Blood Urea Nitrogen 13 mg/dL (9-20); Calcium 8.9 mg/dL (8.4-10.2); Carbon Dioxide 29 mmol/L (22-32); Chloride 101 mmol/L (98-107); Estimated Glomerular Filt Rate > 60.0 mL/min (>60); Globulin 2.8 g/dL (1.7-4.1); Glucose 100 mg/dL (80-110); HEMOLYSIS < 15 (0-50); Lipase 91 U/L (23-300); Sodium 141 mmol/L (137-145)
--- NOTE | 2018-08-16 10:17 | DI.CT.S_ITS ---
PROCEDURE: CT ABDOMEN PELVIS W CON INDICATIONS: Left-sided abdominal pain TECHNIQUE: After the administration of intravenous contrast, 5 mm thick sections acquired from the diaphragm to the symphysis. 5 mm coronal and sagittal reformats were acquired. For radiation dose reduction, the following was used: automated exposure control, adjustment of mA and/or kV according to patient size. COMPARISON: [facility], CT, ABDOMEN/PELVIS WITH CONTRAST, 02/13/2014, 9:03. [facility], CR, XR ACUTE ABDOMEN SERIES, 04/29/2018, 22:33. [facility], CT, CT ABDOMEN PELVIS W CON, 04/29/2018, 23:28. FINDINGS: Image quality: Excellent. ABDOMEN: Lung bases: Lung bases are clear. Heart size is normal. There is a cardiac pacemaker. Solid organs: Mild diffuse hepatic fatty infiltration. Liver is normal in size and enhancement. Gallbladder contains a calcified gallstone. Biliary system is non dilated. Punctate calcifications in the pancreatic tail are noted. Pancreas enhances normally. Spleen is normal in size and enhancement. There is left adrenal thickening and nodularity, unchanged. Kidneys demonstrate normal size and enhancement, without hydronephrosis. Peritoneum and bowel: Bowel loops demonstrate normal wall thickness and caliber. Fluid filled colon loops are noted. There are air fluid level in transverse colon and rectum. No free fluid or air. Normal appendix. Nodes and vessels: No retroperitoneal or mesenteric adenopathy by size criteria. Aorta and inferior vena cava are normal in size. Miscellaneous: Diastases of abdomen sheath and wide-necked ventral hernia appear unchanged. PELVIS: Genitourinary: Bladder wall thickness is normal. Absence of prostate. Miscellaneous: No inguinal adenopathy. Fat containing inguinal hernias are noted. Bones: No suspicious bony lesions. No vertebral body compression fractures. Degenerative changes in lumbar spine. IMPRESSION: 1. Fluid filled colon loops are noted with multiple air-fluid levels in the transverse colon and rectum. The CT findings are nonspecific and may be secondary to gastroenteritis. There is no colonic wall thickening to suggest colitis. No small bowel obstruction. 2. Cholelithiasis. 3. Punctate calcifications of the pancreatic tail, likely sequela of chronic pancreatitis. 4. Nodularity of the left adrenal gland. 5. Stable appearance of diastases of the rectus abdominis and wide necked ventral hernia. Dictated by: Gee Hahn M.D. on 08/16/2018 at 10:31 Approved by: Gee Hahn M.D. on 08/16/2018 at 10:45
[2018-08-16 10:49] LABS: Lactate (Lactic Acid) 1.3 mmol/L (0.7-2.1)
[2018-08-16 11:52] VITALS: BP 153/86; PULSE 75; RESP 14; O2SAT 98
== END 2018-08-16 11:55 | disposition home or self-care (01) ==
PROVIDERS: Emergency Provider Emergency Medicine; PCP Student in an Organized Health Care Education/Training Program
DX: K52.9 Noninfective gastroenteritis and colitis, unspecified (principal)
CPT/HCPCS: 36415; 74177; 80053; 81003; 83605; 83690; 85025; 96360; 96361; 99283; 99285; Q9967

== ENCOUNTER → 2019-03-29 14:00 | Outpatient (CLI) | payer MEDICARE, OTHER, SELFPAY ==
[2018-04-30 03:02] VITALS: BMI 22.2
--- NOTE | 2019-03-29 14:01 | DI.RAD.S_ITS ---
PROCEDURE: XR CHEST 2V INDICATIONS: Cough TECHNIQUE: 2 views of the chest were acquired. COMPARISON: [facility], CR, XR CHEST 1 VIEW, 02/18/2018, 16:50. [facility], CR, XR CHEST 2 VIEWS, 02/19/2018, 8:51. FINDINGS: Surgical changes and devices: There is a cardiac pacemaker in appropriate position. Lungs and pleura: Lungs are clear. No pleural effusions or pneumothorax. Mediastinum: Mediastinal contours are normal. Heart size is normal. Bones and chest wall: No suspicious bony abnormalities. Soft tissues appear unremarkable. IMPRESSION: No acute cardiopulmonary disease. Dictated by: Gee Hahn M.D. on 03/29/2019 at 16:45 Approved by: Gee Hahn M.D. on 03/29/2019 at 16:46
== END ==
PROVIDERS: PCP Student in an Organized Health Care Education/Training Program; Visit Provider Student in an Organized Health Care Education/Training Program
DX: R05 Cough (principal)
CPT/HCPCS: 71046

== ENCOUNTER 2019-06-13 10:43 | Emergency (ER) | payer MEDICARE, OTHER, SELFPAY ==
[2018-04-30 03:02] VITALS: BMI 22.2
[2019-06-13 10:55] VITALS: BP 175/83; PULSE 79; RESP 18; TEMP 36.5; O2SAT 97; BMI 24.4
[2019-06-13 11:00] VITALS: BP 172/79; PULSE 80; O2SAT 97
--- NOTE | 2019-06-13 11:22 | DI.RAD.S_ITS ---
PROCEDURE: XR SACRUM COCCYX MIN 2V INDICATIONS: R sacrum pain, no injury, burning R leg pain TECHNIQUE: 3 views of the sacrum and coccyx acquired. COMPARISON: None. FINDINGS: Bones: No fractures or dislocations. No suspicious bony lesions. Trace retrolithesis of L5 on S1. Soft tissues: Visualized bowel gas pattern is normal. No suspicious soft tissue densities. IMPRESSION: No visualized acute fracture or dislocation. However, if clinical concern and/or pain persist, short interval imaging followup in 7-10 days is recommended, as occult injury cannot be definitively excluded. Dictated by: Wendy Torres M.D. on 06/13/2019 at 12:00 Approved by: Wendy Torres M.D. on 06/13/2019 at 12:02
--- NOTE | 2019-06-13 12:02 | ED_ITS ---
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 Patient reports the discomfort is burning. He also reports discomfort in left sacrum area. Patient denies any trauma, fall or injury. Patient denies sacral anesthesia, incontinence, fever/ chills, rash on the back. Patient reports he is ambulatory without difficulty or weakness. Patient had tried Tylenol last night before go to bed but the discomfort woke patient up from sleep. Related Data Home Medications Medication Instructions Recorded Confirmed magnesium hydroxide [Milk of 5 ml PO TID PRN 04/29/18 06/13/19 Magnesia] metoprolol tartrate 12.5 mg PO BID 04/29/18 06/13/19 valsartan 80 mg PO DAILY 04/29/18 06/13/19 furosemide 20 mg tablet 20 mg PO DAILY 07/14/18 06/13/19 zolpidem 2.5 tab PO BEDTIME PRN 08/16/18 06/13/19 atorvastatin [Lipitor] 20 mg PO BEDTIME 06/13/19 06/13/19 melatonin 3 mg PO BEDTIME 06/13/19 06/13/19 promethazine-DM 5 ml PO Q4H PRN 06/13/19 06/13/19 Previous Rx's Medication Instructions Recorded diltiazem HCl 180 mg PO QAM #90 cap 12/22/17 albuterol sulfate 90 mcg/actuation 1 puff INHALATION Q6H PRN #6.7 gram 03/29/19 aerosol inhaler prednisone 20 mg PO BID 5 Days #10 tab 06/13/19 Allergies Allergy/AdvReac Type Severity Reaction Status Date / Time fluconazole Allergy Severe ANGIOEDEMA Verified 06/13/19 12:46 ciprofloxacin Allergy Mild RASH Verified 06/13/19 12:46 fluticasone Allergy Mild Verified 06/13/19 12:46 sulfamethoxazole Allergy Mild Verified 06/13/19 12:46 [From Bactrim] trimethoprim [From Bactrim] Allergy Mild Verified 06/13/19 12:46 metronidazole AdvReac Intermediate NEUROPATHY, Verified 06/13/19 12:46 PAIN IN EXTREMITIES cefuroxime AdvReac Mild PALPITATION Verified 06/13/19 12:46 S Review of Systems <KASH Chaudhary - Last Filed: 06/13/19 23:32> Review of Systems General: Denies fever, chills, fatigue, malaise, sweats. HEENT: Denies sinus pain, ear pain, sore throat, difficulty swallowing, dizziness. Respiratory: Denies dyspnea, cough, wheezing, hemoptysis, sputum. Cardiovascular: Denies chest pain, palpitations, orthopnea, edema. Gastrointestinal: Denies nausea, vomiting, abdominal pain, diarrhea, constipation, melena. : Denies dysuria, frequency, incontinence, hematuria, urinary retention. Musculoskeletal: See HPI Skin: Denies rash, skin lesions, or other. Neurologic: Denies weakness, headache, numbness, change in speech, confusion, seizures, incoordination. Psychiatric: No concerning psychosocial issues. 12-point review of systems is negative except for those stated above. PFSH <KASH Chaudhary - Last Filed: 06/13/19 23:32> Medical History Pacemaker (Chronic ~12/16/17) Diverticulitis (Acute) Surgical History Status post colectomy Social History household members: other Smoking Status: Former smoker Social History household members: other Smoking Status: Former smoker Exam <KASH Chaudhary - Last Filed: 06/13/19 23:32> Narrative Exam Narrative: GEN: Alert, oriented x 3, well appearing and nourished, and in no acute distress. Head: Normal cephalic, atraumatic. No scalp or temporal tenderness, palpable mass or rash. EYES: Pupils are equal, round, and reactive to light and accommodation. Extraocular muscles are intact bilaterally. There is no subconjunctival hemorrhage, exudate and sclera non-icteric. ENT: Hearing grossly intact. Nose without bleeding, purulent discharge. Mucous membrane moist, no mucosal lesion. Throat without erythema, tonsillar hypertrophy or exudate. Uvula in midline, airway patent. Neck: Trachea in midline. No JVD, non-tender without lymphadenopathy. No masses or thyroid megaly. Supple, non-tender and no meningeal signs. CARDIAC: Normal regular rate and rhythm without murmurs, gallops, or rubs. No chest wall tenderness. No peripheral edema, cyanosis or pallor. Capillary refill is less than 2 seconds. RESPIRATORY: Lungs are cleat to auscultate bilaterally. No cough, wheezes, rales, or rhonchi. No stridor, respiratory distress, increase work of breathing, or accessary muscle used. ABD: Abdomen soft, nontender and non-distended. No guarding or rebound tenderness to palpate. Bowel sounds are normal in all 4 quadrants. There is no palpable masses or organomegaly. EXT: Full painless ROM of all extremities with no loss of sensation, strength, effusion or edema. SKIN: Warm, dry, normal color for patient. No erythema, lesions or rash over visible areas. BACK: Nontender without deformity or crepitance. No flank tenderness. NEUROLOGICAL: Alert and oriented to place, time and person. Sensation and motor function intact bilaterally. No facial droops, dysphasia. PSYCHIATRIC: Good judgement and reason, without hallucinations, abnormal affect or abnormal behaviors during the examination. Initial Vital Signs Initial Vital Signs: Vital Signs Temperature 97.7 F 06/13/19 10:55 Pulse Rate 79 06/13/19 10:55 Respiratory Rate 18 06/13/19 10:55 Blood Pressure 175/83 H 06/13/19 10:55 Pulse Oximetry 97 06/13/19 10:55 Back/Spine/Pelvis Back: normal to inspection, No back tenderness, No CVA tenderness, No ecchymosis, No erythema, No mass and No warmth Thoracic/Lumbar Spine: straight leg raise negative bilaterally Sacroiliac Joints: nontender and No pain elicited by compression of iliac crest maneuver Sacrum: no ecchymosis, no erythema, no swelling and no tenderness <Neyda C Stacey, DO - Last Filed: 06/14/19 13:13> Initial Vital Signs Initial Vital Signs: Vital Signs Temperature 97.7 F 06/13/19 10:55 Pulse Rate 79 06/13/19 10:55 Respiratory Rate 18 06/13/19 10:55 Blood Pressure 175/83 H 06/13/19 10:55 Pulse Oximetry 97 06/13/19 10:55 Course <KASH Chaudhary - Last Filed: 06/13/19 23:32> Orders Ordered: Discontinued Medications Prednisone (Deltasone) 40 mg PO NOW ONE Stop: 06/13/19 12:25 Last Admin: 06/13/19 12:48 Dose: 40 mg Documented by: JAYME Vital Signs - 8 hr 06/13/19 10:55 06/13/19 11:00 Temperature 97.7 F Pulse Rate 79 80 Respiratory Rate 18 Blood Pressure 175/83 H Blood Pressure [Right Arm] 172/79 H Pulse Oximetry 97 97 <Neyda Ibarra DO - Last Filed: 06/14/19 13:13> Orders Ordered: Discontinued Medications Prednisone (Deltasone) 40 mg PO NOW ONE Stop: 06/13/19 12:25 Last Admin: 06/13/19 12:48 Dose: 40 mg Documented by: JAYME Vital Signs - 8 hr 06/13/19 10:55 06/13/19 11:00 Temperature 97.7 F Pulse Rate 79 80 Respiratory Rate 18 Blood Pressure 175/83 H Blood Pressure [Right Arm] 172/79 H Pulse Oximetry 97 97 MDM - Extremity (Nontraumatic) <KASH Chaudhary - Last Filed: 06/13/19 23:32> Differential Diagnosis Likely other (back strain, sciatica) Medical Records Attestation: I reviewed the patient's medical records. Imaging Data XR-sacrum: Radiologist's impression: [address] [address] XRay Report Signed Patient: Conrado Hobbs EMR#: [id number] : 5Acct:[id number] Age/Sex: 83 / MDate of Service: 06/13/19 Loc: ED Accession Number: [id number] Procedure: XR sacrum coccyx min 2V Ordering Provider: Gordon-Oras,Benito [employer] ASSISTANT GENERAL MANAGER PROCEDURE: XR SACRUM COCCYX MIN 2V INDICATIONS: R sacrum pain, no injury, burning R leg pain TECHNIQUE: 3 views of the sacrum and coccyx acquired. COMPARISON: None. FINDINGS: Bones: No fractures or dislocations. No suspicious bony lesions. Trace retrolithesis of L5 on S1. Soft tissues: Visualized bowel gas pattern is normal. No suspicious soft tissue densities. IMPRESSION: No visualized acute fracture or dislocation. However, if clinical concern and/or pain persist, short interval imaging followup in 7-10 days is recommended, as occult injury cannot be definitively excluded. Dictated by: Wendy Torres M.D. on 06/13/2019 at 12:00 Approved by: Wendy Torres M.D. on 06/13/2019 at 12:02 [facility] Narrative Medical decision making narrative: The patient reports left-sided left foot numbness with burning sensation started yesterday afternoon and today he noticed this has been radiating up to left lateral thigh region. Patient also reports discomfort in left sacrum area. Patient denied trauma, injury, urinary symptoms with this. Patient had intact equal bilateral lower extremity and sensation. Patient did not have any incontinence problem or saddle anesthesia. Patient is non toxic appearance. The x-ray test on sacrum showed no acute findings such as dislocations or fractures. Patient was medicated with prednisone as for sciatica and states pain has improved mildly, and DC to home with this medicat ion and advised to take [id number] Tylenol and/or Motrin as needed. Return precautions were discussed with the patient and daughter and no further questions were expressed at this time. Discharge Plan Departure Patient Disposition: Home Clinical Impression: Sciatica Qualifiers: Laterality: left Qualified Code(s): M54.32 - Sciatica, left side Discharge Date/Time: 06/13/19 13:24 Instructions: DI for Sciatica Activity Restrictions/Additional Instructions: You have been diagnosed with [back pain and sciatica. Your sacrum x-ray shows no acute findings such as fracture]. What to do: *Take your medications as directed. Your prednisone has been transmitted to [facility] in [place]. You can start this medication tomorrow as you were medicated in the ED today's dose. *Follow up with your primary care provider in 2-3 days, call for an appointment. Let them know you were seen in the ED and that we asked you to be seen in follow up. *Return to ED if you have any new, worsening, or concerning symptoms, such as [incontinence, rash on her back, weakness to her extremities, increasing tingling numbness to the lower limbs, chest pain, breathing difficulty, unable to tolerate fluids or any acute concerns]. Prescriptions: New prednisone 20 mg tablet 20 mg PO BID 5 Days Qty: 10 RF: 0 No Action diltiazem HCl 180 MG capsule,extended release 24hr 180 mg PO QAM Qty: 90 RF: 2 furosemide [Lasix] 20 mg tablet 20 mg PO DAILY RF: 0 albuterol sulfate 90 mcg/actuation HFA aerosol inhaler 1 puff INHALATION Q6H PRN (Reason: shortness of breath or wheezing) Qty: 6.7 RF: 1 valsartan 80 mg tablet 80 mg PO DAILY RF: 0 magnesium hydroxide [Milk of Magnesia] 400 mg/5 mL Suspension 5 ml PO TID PRN (Reason: Constipation) RF: 0 metoprolol tartrate 25 MG tablet 12.5 mg PO BID RF: 0 zolpidem 5 mg tablet 2.5 tab PO BEDTIME PRN (Reason: Sleep) RF: 0 promethazine-DM 6.25-15 mg/5 mL syrup 5 ml PO Q4H PRN (Reason: Cough) RF: 0 melatonin 3 mg Tablet 3 mg PO BEDTIME RF: 0 atorvastatin [Lipitor] 20 MG tablet 20 mg PO BEDTIME RF: 0 Referrals: George Camacho MD [Primary Care Provider] - <Neyda Ibarra DO - Last Filed: 06/14/19 13:13> [facility]: I was immediately available in the department for consultation. This documentation has been reviewed and I agree with assessment and plan. Supervised by Neyda Ibarra DO
[2019-06-13] MEDS: predniSONE 20 MG TABLET 40 MG PO (12:48)
== END 2019-06-13 13:24 | disposition home or self-care (01) ==
PROVIDERS: Emergency Provider Nurse Practitioner Family; PCP Student in an Organized Health Care Education/Training Program
DX: M54.32 Sciatica, left side (principal)
CPT/HCPCS: 72220; 99282; 99283

== ENCOUNTER 2019-07-02 04:48 | Emergency (ER) | payer MEDICARE, OTHER, SELFPAY ==
[2018-04-30 03:02] VITALS: BMI 22.2
--- NOTE | 2019-07-02 04:59 | ED_ITS ---
HPI - General Adult <Dragan Sanchez DO - Last Filed: 07/02/19 20:17> General Chief complaint: Extremity Problem,Nontraumatic Stated complaint: ABD pain Time Seen by Provider: 07/02/19 04:50 Source: patient and EMS Mode of arrival: EMS Limitations: no limitations and other History of Present Illness HPI narrative: Patient is an 84-year-old male brought in by S crew for initially evaluation of abdominal pain. Patient lives at an assisted living facility. They were called by the patient to the assisted-living facility for what was initially reported as abdominal pain. when the patient arrives he states that the reason he is here is for pain and numbness his left lower extremity from his knee to his foot. When I asked him if he had abdominal pain he said ?well maybe, but my foot hurts ?. The time of evaluation he reported no abdominal pain. he reports no trauma. says that his foot hurts and is numb up to his knee. It is somewhat difficult to obtain HPI from the patient due to confusing and changing complaints. Related Data Home Medications Medication Instructions Recorded Confirmed magnesium hydroxide [Milk of 5 ml PO TID PRN 04/29/18 06/13/19 Magnesia] metoprolol tartrate 12.5 mg PO BID 04/29/18 06/13/19 valsartan 80 mg PO DAILY 04/29/18 06/13/19 furosemide 20 mg tablet 20 mg PO DAILY 07/14/18 06/13/19 zolpidem 2.5 tab PO BEDTIME PRN 08/16/18 06/13/19 atorvastatin [Lipitor] 20 mg PO BEDTIME 06/13/19 06/13/19 melatonin 3 mg PO BEDTIME 06/13/19 06/13/19 promethazine-DM 5 ml PO Q4H PRN 06/13/19 06/13/19 Previous Rx's Medication Instructions Recorded diltiazem HCl 180 mg PO QAM #90 cap 12/22/17 albuterol sulfate 90 mcg/actuation 1 puff INHALATION Q6H PRN #6.7 gram 03/29/19 aerosol inhaler prednisone 20 mg PO BID 5 Days #10 tab 06/13/19 hydrocodone-acetaminophen [[place]] 1 tab PO Q6H PRN #7 tab 07/02/19 Allergies Allergy/AdvReac Type Severity Reaction Status Date / Time fluconazole Allergy Severe ANGIOEDEMA Verified 06/13/19 12:46 ciprofloxacin Allergy Mild RASH Verified 06/13/19 12:46 fluticasone Allergy Mild Verified 06/13/19 12:46 sulfamethoxazole Allergy Mild Verified 06/13/19 12:46 [From Bactrim] trimethoprim [From Bactrim] Allergy Mild Verified 06/13/19 12:46 metronidazole AdvReac Intermediate NEUROPATHY, Verified 06/13/19 12:46 PAIN IN EXTREMITIES cefuroxime AdvReac Mild PALPITATION Verified 06/13/19 12:46 S Review of Systems <Dragan Sanchez DO - Last Filed: 07/02/19 20:17> Constitutional Constitutional: Denies fever(s) and Denies headache(s) ENT Ears, Nose, Mouth, and Throat: Denies dizziness and Denies headache(s) Cardiovascular Cardiovascular: Denies chest pain and Denies dyspnea Respiratory Respiratory: Denies dyspnea Gastrointestinal Gastrointestinal: Denies nausea and Denies vomiting Comments: Initially reported abdominal pain however the time of my evaluation he denied any pain Genitourinary Genitourinary: Denies urinary incontinence and Denies urinary urgency Musculoskeletal Comments: Left foot pain, numbness to his left foot up to his knee Integumentary/Breasts Skin/Breast: Denies lesions and Denies rash Neurologic Neurologic: Denies dizziness and Denies headache(s) Hematologic/Lymphatic Hematologic/Lymphatic: Denies easy bleeding and Denies easy bruising PFSH <Dragan Sanchez DO - Last Filed: 07/02/19 20:17> Medical History Diverticulitis (Acute) Pacemaker (Chronic ~12/16/17) Social History household members: other Smoking Status: Former smoker Exam <Dragan Sanchez DO - Last Filed: 07/02/19 20:17> Initial Vital Signs Initial Vital Signs: Vital Signs Temperature 97.8 F 07/02/19 05:05 Pulse Rate 98 H 07/02/19 05:05 Respiratory Rate 20 07/02/19 05:05 Blood Pressure 166/84 H 07/02/19 05:05 Pulse Oximetry 98 07/02/19 05:05 Const General: cooperative, well developed and well groomed Orientation: alert, awake, oriented to person, oriented to place and oriented to time [facility] Head: normal to inspection and normocephalic Resp Effort & Inspection: normal respiratory effort Auscultation: clear to auscultation bilaterally Cardio Rate: regular rate Rhythm: regular rhythm Pulses: dorsalis pedis present bilaterally GI Inspection: non-distended Palpation: soft, No firm and No tender Other: Patient has no tenderness to palpation of his abdomen. Skin Lesions: no lesions Rashes: no rashes Neuro General: alert, awake and oriented x3 Speech: speech normal Motor: strength 5/5 throughout Other: Patient reports numbness to his entire left foot up to his knee on the left however he reports equal sensation to light touch bilateral lower extremities. he has 5/5 strength bilateral lower extremities. Can plantar flex equally bilaterally. Extrem General: normal to inspection and capillary refill normal Psych Appearance: grossly normal and well kempt <Neyda Ibarra, DO - Last Filed: 07/02/19 19:13> Initial Vital Signs Initial Vital Signs: Vital Signs Temperature 97.8 F 07/02/19 05:05 Pulse Rate 98 H 07/02/19 05:05 Respiratory Rate 20 07/02/19 05:05 Blood Pressure 166/84 H 07/02/19 05:05 Pulse Oximetry 98 07/02/19 05:05 Course <Dragan Sanchez, DO - Last Filed: 07/02/19 20:17> Orders Ordered: Discontinued Medications Hydrocodone Bitart/Acetaminophen ([place] 5/325) 1 tab PO NOW ONE Stop: 07/02/19 05:07 Last Admin: 07/02/19 05:40 Dose: 1 tab Documented by: ANKUR Sodium Chloride (Normal Saline 0.9%) 1,000 mls @ 1,000 mls/hr IV BOLUS ONE Stop: 07/02/19 08:13 Last Infusion: 07/02/19 08:23 Dose: 0 mls/hr Documented by: Admin: 07/02/19 07:26 Dose: 1,000 mls/hr Documented by: ISSAC Ketorolac Tromethamine (Toradol) 30 mg IM NOW ONE Stop: 07/02/19 06:18 Last Admin: 07/02/19 06:25 Dose: Not Given Documented by: ANKUR Ketorolac Tromethamine (Toradol) 30 mg IV NOW ONE Stop: 07/02/19 06:21 Last Admin: 07/02/19 06:24 Dose: 30 mg Documented by: ANKUR Vital Signs Vital signs: Vital Signs - 8 hr 07/02/19 05:05 Temperature 97.8 F Pulse Rate 98 H Respiratory Rate 20 Blood Pressure 166/84 H Pulse Oximetry 98 <Neyda Ibarra DO - Last Filed: 07/02/19 19:13> Orders Ordered: Discontinued Medications Hydrocodone Bitart/Acetaminophen ([place] 5/325) 1 tab PO NOW ONE Stop: 07/02/19 05:07 Last Admin: 07/02/19 05:40 Dose: 1 tab Documented by: ANKUR Sodium Chloride (Normal Saline 0.9%) 1,000 mls @ 1,000 mls/hr IV BOLUS ONE Stop: 07/02/19 08:13 Last Infusion: 07/02/19 08:23 Dose: 0 mls/hr Documented by: Admin: 07/02/19 07:26 Dose: 1,000 mls/hr Documented by: ISSAC Ketorolac Tromethamine (Toradol) 30 mg IM NOW ONE Stop: 07/02/19 06:18 Last Admin: 07/02/19 06:25 Dose: Not Given Documented by: ANKUR Ketorolac Tromethamine (Toradol) 30 mg IV NOW ONE Stop: 07/02/19 06:21 Last Admin: 07/02/19 06:24 Dose: 30 mg Documented by: ANKUR Vital Signs Vital signs: Vital Signs - 8 hr 07/02/19 05:05 Temperature 97.8 F Pulse Rate 98 H Respiratory Rate 20 Blood Pressure 166/84 H Pulse Oximetry 98 Medical Decision Making <Dragan Sanchez DO - Last Filed: 07/02/19 20:17> Lab Data Lab results reviewed: Yes I reviewed the patient's lab results. Result diagrams: 07/02/19 05:15 07/02/19 05:15 Labs: Lab Results 07/02/19 07/02/19 Range/Units 05:15 05:15 WBC 5.8 (4.5-11.0) X10^3/uL RBC 4.65 (4.5-5.9) X10^6/uL Hgb 14.3 (13.5-17.5) g/dL Hct 41.7 (41-53) % MCV 89.6 (80-100) fL MCH 30.8 (26-34) PG MCHC 34.4 (30-36) % RDW 12.7 (11.6-14.8) % Plt Count 253 (150-400) X10^3/uL Neut % (Auto) 44.1 L (50-75) % Lymph % (Auto) 40.9 H (25-40) % [place] % (Auto) 10.7 (3-14) % Eos % (Auto) 3.0 (2-4) % Baso % (Auto) 1.3 (0-2) % Neut # (Auto) 2500 (8198-4275) /uL Lymph # (Auto) 2400 (2019-5843) /uL [place] # (Auto) 600 (0-900) /uL Eos # (Auto) 200 (0-450) /uL Baso # (Auto) 100 (0-100) /uL Sodium 139 (137-145) mmol/L Potassium 3.6 (3.4-5.1) mmol/L Chloride 101 (98-107) mmol/L Carbon Dioxide 27 (22-32) mmol/L BUN 13 (9-20) mg/dL Creatinine 0.80 (0.66-1.25) mg/dL Estimated GFR > 60.0 (>60) mL/min BUN/Creatinine Ratio 16.3 (6-22) Glucose 102 (80-110) mg/dL Calcium 9.4 (8.4-10.2) mg/dL Total Bilirubin 0.8 (0.2-1.3) mg/dL AST 28 (17-59) IU/L ALT 27 (21-72) IU/L Alkaline Phosphatase 48 (38-126) U/L Total Protein 7.5 (6.3-8.2) g/dL Albumin 4.3 (3.5-5.0) g/dL Globulin 3.2 (1.7-4.1) g/dL Albumin/Globulin Ratio 1.3 (1.0-2.8) Lipase 135 (23-300) U/L Urine Dip Bedside Urine Glucose Negative Bedside Urine Bilirubin - Negative Bedside Urine Ketone - Negative Urine Specific [place] 1.010 Bedside Urine Occult Blood - Negative Bedside Urine pH 8.5 Bedside Urine Protein - Negative Bedside Urine Urobilinogen - Negative Bedside Urine Nitrite - Negative Bedside Urine Leukocytes - Negative Esterase Point of care testing: Urine Dip Bedside Urine Glucose Negative Bedside Urine Bilirubin - Negative Bedside Urine Ketone - Negative Urine Specific [place] 1.010 Bedside Urine Occult Blood - Negative Bedside Urine pH 8.5 Bedside Urine Protein - Negative Bedside Urine Urobilinogen - Negative Bedside Urine Nitrite - Negative Bedside Urine Leukocytes - Negative Esterase Imaging Data X-ray left foot: Attestation: I personally reviewed and interpreted this imaging study as follows: My impression: No fractures, no dislocations, MDM Narrative Medical decision making narrative: Upon review of the patient's prior note he was here in the emergency department several weeks ago with left-sided sciatic. He was seen at the beginning of last month by his primary doctor with left-sided sciatic as well. Physical therapy consult was placed over the patient states that he has not followed up with that referral. Initially was very difficult to determine why the patient was here. The initial reports of abdominal pain seemed to not be the case. Patient has expressed multiple times that he does not have any abdominal pain. he does report numbness and tingling in his left lower extremity however this is subjective. I feel that this is more neuropathy. I did discuss this with the patient. He agreed that he thinks that it was a ?slipped disc? in his back that is causing his problems. He was given [place] and Toradol. We did discuss the use of Neurontin and anti-inflammatories at home. Did inform the patient that unfortunately he did not meet criteria to be admitted to the hospital. Upon re-evaluation prior to turned over patient then started complaining of left-sided abdominal pain. when I asked if he had this abdominal pain earlier today he said no. He does have a history of diverticulitis. He did have tenderness to palpation on the left side of his abdomen at this time. CT scan of his abdomen pelvis was ordered for further evaluation. Care turned over to the provider at change of shift to follow up on CT scan. <Neyda Ibarra, DO - Last Filed: 07/02/19 19:13> Lab Data Lab results reviewed: Yes I reviewed the patient's lab results. Labs: Lab Results 07/02/19 07/02/19 Range/Units 05:15 05:15 WBC 5.8 (4.5-11.0) X10^3/uL RBC 4.65 (4.5-5.9) X10^6/uL Hgb 14.3 (13.5-17.5) g/dL Hct 41.7 (41-53) % MCV 89.6 (80-100) fL MCH 30.8 (26-34) PG MCHC 34.4 (30-36) % RDW 12.7 (11.6-14.8) % Plt Count 253 (150-400) X10^3/uL Neut % (Auto) 44.1 L (50-75) % Lymph % (Auto) 40.9 H (25-40) % [place] % (Auto) 10.7 (3-14) % Eos % (Auto) 3.0 (2-4) % Baso % (Auto) 1.3 (0-2) % Neut # (Auto) 2500 (5098-9418) /uL Lymph # (Auto) 2400 (5210-9229) /uL [place] # (Auto) 600 (0-900) /uL Eos # (Auto) 200 (0-450) /uL Baso # (Auto) 100 (0-100) /uL Sodium 139 (137-145) mmol/L Potassium 3.6 (3.4-5.1) mmol/L Chloride 101 (98-107) mmol/L Carbon Dioxide 27 (22-32) mmol/L BUN 13 (9-20) mg/dL Creatinine 0.80 (0.66-1.25) mg/dL Estimated GFR > 60.0 (>60) mL/min BUN/Creatinine Ratio 16.3 (6-22) Glucose 102 (80-110) mg/dL Calcium 9.4 (8.4-10.2) mg/dL Total Bilirubin 0.8 (0.2-1.3) mg/dL AST 28 (17-59) IU/L ALT 27 (21-72) IU/L Alkaline Phosphatase 48 (38-126) U/L Total Protein 7.5 (6.3-8.2) g/dL Albumin 4.3 (3.5-5.0) g/dL Globulin 3.2 (1.7-4.1) g/dL Albumin/Globulin Ratio 1.3 (1.0-2.8) Lipase 135 (23-300) U/L Urine Dip Bedside Urine Glucose Negative Bedside Urine Bilirubin - Negative Bedside Urine Ketone - Negative Urine Specific [place] 1.010 Bedside Urine Occult Blood - Negative Bedside Urine pH 8.5 Bedside Urine Protein - Negative Bedside Urine Urobilinogen - Negative Bedside Urine Nitrite - Negative Bedside Urine Leukocytes - Negative Esterase Point of care testing: Urine Dip Bedside Urine Glucose Negative Bedside Urine Bilirubin - Negative Bedside Urine Ketone - Negative Urine Specific [place] 1.010 Bedside Urine Occult Blood - Negative Bedside Urine pH 8.5 Bedside Urine Protein - Negative Bedside Urine Urobilinogen - Negative Bedside Urine Nitrite - Negative Bedside Urine Leukocytes - Negative Esterase Imaging Data CT scan - abdomen: Radiologist's impression: [address] [address] [address] Scan Report Signed Patient: Conrado Hobbs EMR#: [id number] : 5Acct:[id number] Age/Sex: 84 / MDate of Service: 07/02/19 Loc: ED Accession Number: [id number] Procedure: CT abdomen pelvis w con Ordering Provider: Dragan Sanchez D.O. PROCEDURE: CT ABDOMEN PELVIS W CON INDICATIONS: Left sided ABD pain eval for diverticulitis TECHNIQUE: After the administration of intravenous contrast, 5 mm thick sections acquired from the diaphragm to the symphysis. 5 mm coronal and sagittal reformats were acquired. For radiation dose reduction, the following was used: automated exposure control, adjustment of mA and/or kV according to patient size. COMPARISON: [facility], CT, CT ABDOMEN PELVIS W CON, 08/16/2018, 9:57. FINDINGS: Image quality: Excellent. ABDOMEN: Lung bases: Mild bibasilar atelectasis. Heart size is normal. Scattered atherosclerotic calcifications of the coronary arteries are noted. Solid organs: Liver is normal in size and enhancement. Gallbladder contains a small gallstone as before. No CT evidence for acute cholecystitis. Biliary system is non dilated. Pancreas enhances normally. Stable appearance of pancreatic tail calcifications, likely sequela of prior pancreatitis. Spleen is normal in size and enhancement. No focal adrenal nodules. Slight nodular appearance of the left adrenal gland, unchanged. Kidneys demonstrate normal size and enhancement, without hydronephrosis. Bilateral ureters are normal in course and caliber. No ureteral stones. Peritoneum and bowel: Stable postoperative changes in the distal sigmoid colon. Scant distal descending colon diverticula without acute inflammation. There is fluid and stool within the rectum and colon without wall thickening or distention. Scattered fluid filled small bowel are noted throughout the abdomen without associated wall thickening or distention. Minimally prominent air and fluid-filled segments of small bowel in the left midabdomen appears stable. Normal appendix. No free fluid or air. Nodes and vessels: No retroperitoneal or mesenteric adenopathy by size criteria. Scattered atherosclerotic calcifications of the abdominal aorta and iliac vessels without aneurysmal dilatation. Miscellaneous: Stable appearance of diastases recti and wide necked ventral hernia. PELVIS: Genitourinary: The decompressed urinary bladder appears normal for degree of distention. Surgical clips in the lower midline pelvis compatible with prior prostatectomy. Miscellaneous: No pelvic adenopathy. Small fat containing inguinal hernias are noted bilaterally. No acute inflammation. Bones: No suspicious bony lesions. No acute vertebral body compression fractures. Multilevel spondylitic changes throughout the imaged spine. IMPRESSION: 1. Multiple fluid filled loops of colon and rectum with scattered loops of nondistended fluid-filled small bowel. No associated inflammatory changes or wall thickening. Findings are nonspecific and may represent colitis/enteritis with infectious or inflammatory process most likely. No evidence for bowel obstruction. 2. Cholelithiasis without CT evidence for acute cholecystitis. 3. Normal appendix. 4. Stable appearance of punctate pancreatic duct calcifications, possibly re lated to prior pancreatitis. 5. Stable appearance of diastases recti and wide necked ventral hernia. 6. Scant distal descending colonic diverticula without acute inflammation. Stable postoperative changes from prior distal colonic resection. Other chronic findings as above. Dictated by: Berhane Washington M.D. on 07/02/2019 at 6:53 Approved by: Berhane Washington M.D. on 07/02/2019 at 7:05 [facility] Narrative Medical decision making narrative: Patient was signed out to myself by Dr. Sanchez. CBC shows a low neutrophil count, CMP does not show any acute changes, poc urine is negative. Initially patient was complaining of foot pain and has recently been diagnosed with sciatica, xray was ordered which was negative. Later patient complained of abdominal pain and CT abd/pelvis shows, patient has multiple fluid-filled loops with scattered loops of nondistended fluid filled small bowel. No associated phlegm a oksana changes or wall thickening findings are nonspecific and could represent enteritis, no evidence of bowel obstruction. Patient has cholelithiasis without evidence of cholecystitis, and some stable punctate pancreatic duct calcifications. He also has some diverticula but without acute inflammation. On re-evaluation patient states he has no foot pain, he does complain of LLQ pain that is 2/10 while laying but 8/10 if he presses. We discussed that we are not findings a clear cause to treat with an tibiotics today. CT findings were discussed with patient and daughter. PT evaluated patient and he was able to ambulate without issue safely. Daughter states he will often call her at 3am to complain of pain or health concerns. Discussed findings and BP is elevated during stay, patient is due for his am medications and plans to take them when he returns home. Patient ambulated from department without issue. Discharge Plan Departure Patient Disposition: Home Clinical Impression: Sciatica, left side, Abdominal pain Discharge Date/Time: 07/02/19 09:21 Instructions: DI for Sciatica, DI for Abdominal Pain-Adult Activity Restrictions/Additional Instructions: Follow up with your physician for recheck in the next 2-3 days. Continue home medications as prescribed. Take your regular blood pressure medications when you return home. You may give norco 1 tablet every 6 hours as needed for pain. I would recommend a stool softener if taking narcotics such as miralax once daily. Return to the Emergency Department if you have fevers greater than 100.4 F, passing out, new chest pain or shortness of breath, persistent vomiting, rapidly worsening abdominal or back pain, difficulty with urination, black or bloody stools or other new or concerning symptoms. Prescriptions: New hydrocodone-acetaminophen [[place]] 5-325 mg tablet 1 tab PO Q6H PRN (Reason: pain) Qty: 7 RF: 0 No Action diltiazem HCl 180 MG capsule,extended release 24hr 180 mg PO QAM Qty: 90 RF: 2 furosemide [Lasix] 20 mg tablet 20 mg PO DAILY RF: 0 albuterol sulfate 90 mcg/actuation HFA aerosol inhaler 1 puff INHALATION Q6H PRN (Reason: shortness of breath or wheezing) Qty: 6.7 RF: 1 valsartan 80 mg tablet 80 mg PO DAILY RF: 0 magnesium hydroxide [Milk of Magnesia] 400 mg/5 mL Suspension 5 ml PO TID PRN (Reason: Constipation) RF: 0 metoprolol tartrate 25 MG tablet 12.5 mg PO BID RF: 0 zolpidem 5 mg tablet 2.5 tab PO BEDTIME PRN (Reason: Sleep) RF: 0 promethazine-DM 6.25-15 mg/5 mL syrup 5 ml PO Q4H PRN (Reason: Cough) RF: 0 melatonin 3 mg Tablet 3 mg PO BEDTIME RF: 0 atorvastatin [Lipitor] 20 MG tablet 20 mg PO BEDTIME RF: 0 prednisone 20 mg tablet 20 mg PO BID 5 Days Qty: 10 RF: 0 Referrals: George Camacho MD [Primary Care Provider] -
[2019-07-02 05:05] VITALS: BP 166/84; PULSE 98; RESP 20; TEMP 36.6; O2SAT 98; BMI 26.2
--- NOTE | 2019-07-02 05:06 | DI.RAD.S_ITS ---
PROCEDURE: XR FOOT LT MIN 3V INDICATIONS: generalized pain TECHNIQUE: 3 views of the foot were acquired. COMPARISON: None. FINDINGS: Bones: No acute fractures or dislocations. No suspicious bony lesions. Small retrocalcaneal spurring. Soft tissues: No tibiotalar joint effusion. Achilles tendon appears normal. IMPRESSION: Left foot without acute radiographic abnormalities. Spurring of the posterior calcaneus. No significant discrepancies from emergency physician's preliminary interpretation. Dictated by: Berhane Washington M.D. on 07/02/2019 at 6:45 Approved by: Berhane Washington M.D. on 07/02/2019 at 6:47
[2019-07-02 05:28] LABS: Add Manual Diff / Slide Review NO; Basophils Absolute Auto 100 /uL (0-100); Basophils Percent Auto 1.3 % (0-2); Eosinophils Absolute Auto 200 /uL (0-450); Hematocrit 41.7 % (41-53); Hemoglobin 14.3 g/dL (13.5-17.5); Lymphocytes Absolute Auto 2400 /uL (1100-4500); Lymphocytes Percent Auto 40.9 % (25-40); Mean Corpuscular HGB Conc 34.4 % (30-36); Mean Corpuscular Hemoglobin 30.8 PG (26-34); Mean Corpuscular Volume 89.6 fL (80-100); Monocytes Absolute Auto 600 /uL (0-900); Monocytes Percent Auto 10.7 % (3-14); Neutrophils Absolute Auto 2500 /uL (1500-7000); Neutrophils Percent Auto 44.1 % (50-75); Platelet Count 253 X10^3/uL (150-400); Red Blood Cell Count 4.65 X10^6/uL (4.5-5.9); Red Cell Distribution Width 12.7 % (11.6-14.8); White Blood Cell Count 5.8 X10^3/uL (4.5-11.0)
[2019-07-02 05:36] LABS: Alanine Aminotransferase 27 IU/L (21-72); Albumin 4.3 g/dL (3.5-5.0); Albumin Globulin Ratio 1.3 (1.0-2.8); Alkaline Phosphatase 48 U/L (38-126); Aspartate Aminotransferase 28 IU/L (17-59); BUN Creatinine Ratio 16.3 (6-22); Bilirubin Total 0.8 mg/dL (0.2-1.3); Blood Urea Nitrogen 13 mg/dL (9-20); Calcium 9.4 mg/dL (8.4-10.2); Carbon Dioxide 27 mmol/L (22-32); Chloride 101 mmol/L (98-107); Estimated Glomerular Filt Rate > 60.0 mL/min (>60); Globulin 3.2 g/dL (1.7-4.1); Glucose 102 mg/dL (80-110); HEMOLYSIS 21 (0-50); Lipase 135 U/L (23-300); Potassium 3.6 mmol/L (3.4-5.1); Sodium 139 mmol/L (137-145); Total Protein 7.5 g/dL (6.3-8.2)
[2019-07-02] MEDS: HYDROCODONE/ACET 5/325 TABLET 1 TAB PO (05:40)
[2019-07-02] MEDS: KETOROLAC 60 MG/2 ML VIAL 30 MG IV (06:24)
--- NOTE | 2019-07-02 07:14 | DI.CT.S_ITS ---
PROCEDURE: CT ABDOMEN PELVIS W CON INDICATIONS: Left sided ABD pain eval for diverticulitis TECHNIQUE: After the administration of intravenous contrast, 5 mm thick sections acquired from the diaphragm to the symphysis. 5 mm coronal and sagittal reformats were acquired. For radiation dose reduction, the following was used: automated exposure control, adjustment of mA and/or kV according to patient size. COMPARISON: [facility], CT, CT ABDOMEN PELVIS W CON, 08/16/2018, 9:57. FINDINGS: Image quality: Excellent. ABDOMEN: Lung bases: Mild bibasilar atelectasis. Heart size is normal. Scattered atherosclerotic calcifications of the coronary arteries are noted. Solid organs: Liver is normal in size and enhancement. Gallbladder contains a small gallstone as before. No CT evidence for acute cholecystitis. Biliary system is non dilated. Pancreas enhances normally. Stable appearance of pancreatic tail calcifications, likely sequela of prior pancreatitis. Spleen is normal in size and enhancement. No focal adrenal nodules. Slight nodular appearance of the left adrenal gland, unchanged. Kidneys demonstrate normal size and enhancement, without hydronephrosis. Bilateral ureters are normal in course and caliber. No ureteral stones. Peritoneum and bowel: Stable postoperative changes in the distal sigmoid colon. Scant distal descending colon diverticula without acute inflammation. There is fluid and stool within the rectum and colon without wall thickening or distention. Scattered fluid filled small bowel are noted throughout the abdomen without associated wall thickening or distention. Minimally prominent air and fluid-filled segments of small bowel in the left midabdomen appears stable. Normal appendix. No free fluid or air. Nodes and vessels: No retroperitoneal or mesenteric adenopathy by size criteria. Scattered atherosclerotic calcifications of the abdominal aorta and iliac vessels without aneurysmal dilatation. Miscellaneous: Stable appearance of diastases recti and wide necked ventral hernia. PELVIS: Genitourinary: The decompressed urinary bladder appears normal for degree of distention. Surgical clips in the lower midline pelvis compatible with prior prostatectomy. Miscellaneous: No pelvic adenopathy. Small fat containing inguinal hernias are noted bilaterally. No acute inflammation. Bones: No suspicious bony lesions. No acute vertebral body compression fractures. Multilevel spondylitic changes throughout the imaged spine. IMPRESSION: 1. Multiple fluid filled loops of colon and rectum with scattered loops of nondistended fluid-filled small bowel. No associated inflammatory changes or wall thickening. Findings are nonspecific and may represent colitis/enteritis with infectious or inflammatory process most likely. No evidence for bowel obstruction. 2. Cholelithiasis without CT evidence for acute cholecystitis. 3. Normal appendix. 4. Stable appearance of punctate pancreatic duct calcifications, possibly related to prior pancreatitis. 5. Stable appearance of diastases recti and wide necked ventral hernia. 6. Scant distal descending colonic diverticula without acute inflammation. Stable postoperative changes from prior distal colonic resection. Other chronic findings as above. Dictated by: Berhane Washington M.D. on 07/02/2019 at 6:53 Approved by: Berhane Washington M.D. on 07/02/2019 at 7:05
[2019-07-02] MEDS: SODIUM CHLORIDE 0.9% 1,000 ML 1000 ML IV (07:26)
--- NOTE | 2019-07-02 08:55 | PC.NURSE ---
PT ambulating around department with PT
[2019-07-02 09:15] VITALS: BP 187/92; PULSE 87; RESP 20; O2SAT 100
[2019-07-02 09:18] VITALS: BP 185/84; PULSE 75; RESP 15; O2SAT 100
--- NOTE | 2019-07-02 09:29 | PT.IIE ---
Surgical History (Last Reviewed 06/13/19 @ 12:05 by KASH Chaudhary) Status post colectomy Medical History (Last Reviewed 07/02/19 @ 05:15 by Dragan Sanchez DO) Diverticulitis (Acute) Pacemaker (Chronic ~12/16/17) Physical Therapy Inpatient Evaluation/Re-Eval M1 PT/OT-IP Prior Functional Status Start: 07/02/19 08:21 Freq: Status: Discharge Protocol: Document 07/02/19 09:02 AW (Rec: 07/02/19 09:20 AW [id number]) Medical Review Prior Functional Status Medical History Reviewed Yes Communication Able to make needs known. Daughter reports mild cognitive impairment. Mobility and Gait Pt was independent for all functional mobility with no assistive device Activities of Daily Living and IADL's Pt lives at an [facility] where he receives help with meds and meals. He reports independence with ADL/IADL's except for driving. Social History Household Members other Living Arrangements Assisted Living Number of Floors (Floors) 3 or More Floors Number of Stairs To Enter/Railing? 0 MANDA. 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 M2 PT-IP Current Condition Start: 07/02/19 08:21 Freq: Status: Discharge Protocol: Document 07/02/19 09:02 AW (Rec: 07/02/19 09:20 AW [id number]) Physical Therapy Current Condition Current Condition Evaluation Date 07/02/19 Treatment Diagnosis abdominal pain, difficulty in walking Onset Date 06/30/19 Weight Bearing Status Weight Bearing Status Full Weight Bearing M3 PT-IP Subjective Start: 07/02/19 08:21 Freq: Status: Discharge Protocol: Document 07/02/19 09:02 AW (Rec: 07/02/19 09:20 AW [id number]) Subjective Physical Therapy Visit Type Type Initial Evaluation Visit Start Time 08:39 Visit Stop Time 08:59 Total Visit Minutes 20 Notes PT consulted due to pt complaint of distal LLE numbness Number of [employer] Visits 0 Physical Therapy Visit Comments Patient Comments My abdomen hurts. I have diverticulitis. Therapy Pain Assessment Pain When Pain Assessed During Mobility Pain Present Pain Present Pain Reported Location abdomen - left lower Pain Behaviors Guarding,Holding Area Pain Management Techniques Distraction M4 PT-IP Mobility and Gait Start: 07/02/19 08:21 Freq: Status: Discharge Protocol: Document 07/02/19 09:02 AW (Rec: 07/02/19 09:20 AW [id number]) PT-Bed Mobility Assessment Rolling Type of Rolling Roll to Right Level of Assist Independent Supine to Sit Supine to Sit Independent Sit to Supine Sit to Supine Independent Scooting Scooting to Edge of Bed Independent PT-Transfer Assessment Sit to and From Stand Sit to and from Stand Independent Equipment Transfer Assistive Device Gait Belt Transfers Transfer Destination Bed Transfer Technique pt ambulated around ED and returned to bed Transfer Ability Level of Assist Independent Comments Mobility Comments Pt required no assist for transfers. He complained of pain in left lower abdomen, but had no dizziness, no unsteadiness Gait Assessment Gait Gait Assistance Required: Standby Assistance Distance (Feet) 150 Able to Maintain Weight Bearing Status Yes During Gait Assistive Devices Assistive Device Gait Belt Orthotic/Prosthetic Devices or Brace: No Gait Deviations General Gait Pattern Decreased Stride Length, Decreased Feet Clearance, Flexed Trunk Factors Limiting Gait Function Factors Limiting Gait Function Pain Comments Gait Comments Pt ambulated ~150 feet using no AD. He was slow but steady with changes in speed and with head turns, nods. Modified DGI score of 11/12 indicates he is at low risk of falling PT-Balance Assessment Sitting Balance and Reactions Static Sitting Balance Ability Good Dynamic Sitting Balance Ability Good Standing Balance and Reactions Static Standing Balance Ability Good Dynamic Standing Balance Ability Good Device Used none M5 PT-IP Objective Assessments Start: 07/02/19 08:21 Freq: Status: Discharge Protocol: Document 07/02/19 09:02 AW (Rec: 07/02/19 09:20 AW [id number]) Orientation Orientation/Cognition Level of Alertness Alert Orientation Name,Birthday,Month,Place, Situation Language Function Ability No Deficits Noted Safety Awareness Understands Safety Issues Comments Pt's daughter reports mild cognitive impairment. He presented to the ED complaining of abdominal pain. Later denied abd pain and reported LLE numbness. At PT eval, pt denied any sensation impairment and complained of abdominal pain Gross Range of Motion Upper Extremity ROM Assessment Within Functional Limits Lower Extremity ROM Assessment Within Functional Limits Strength Upper Extremity Strength Assessment Within Functional Limits Lower Extremity Strength Assessment Within Functional Limits Comments Strength Comments grossly 5/5 in BUE and BLE all major muscle groups Coordination Assessment Gross Coordination Gross Coordination WNL Sensation Assessment Sensation Gross Sensation WNL Light Touch Intact Comments Sensation Comments Pt no longer reporting LLE numbness. Light touch sensation intact bilaterally and in all dermatomes on exam Muscle Tone Muscle Tone WNL Yes M6 PT-IP Treatment Start: 07/02/19 08:21 Freq: Status: Discharge Protocol: Document 07/02/19 09:02 AW (Rec: 07/02/19 09:20 AW [id number]) Physical Therapy Treatment Education Education Provided Safety M7 PT-IP Assessment and Plan Start: 07/02/19 09:22 Freq: Status: Active Protocol: Document 07/02/19 09:02 AW (Rec: 07/02/19 09:29 AW [id number]) PT Summary Assessment and Plan Potential Rehabilitation Potential Excellent Status of Condition at Evaluation Stable Summary Impairments Pain Assessment Summary 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 PLOF: He receives assistance with medication management, meals, and driving, but is otherwise independent, including with all functional mobility requiring no assistive device. CLOF: Pt seen for PT evaluation at ED request due to complaints of distal LLE numbness. On exam, light touch sensation is intact in all extremities, in all dermatomes . He ambulated ~150 feet without assistive device, requiring SBA only. He scored 11/12 on modified Dynamic Gait Index with no appreciable change in speed nor path deviation with horizontal and vertical head turns. He presents as a low risk for falls. BP on return to room was 179/139, but pt was asymptomatic. BP reported to nursing and ED physician. At this time, abdominal pain appears to be his most significant complaint and it is not interfering with safe mobility. PT recommends discharge back to [facility] when cleared by ED. Frequency of Treatment Frequency Of Treatment Discharge Recommendations To Nursing Amount of Assist Needed Standby Assistance Discharge Recommendations PT Discharge Recommendations Home with Assistance Other Discharge Recommendations Back to [facility]
== END 2019-07-02 09:21 | disposition home or self-care (01) ==
PROVIDERS: Emergency Medicine; Emergency Provider Emergency Medicine; PCP Student in an Organized Health Care Education/Training Program
DX: M54.32 Sciatica, left side (principal); R10.9 Unspecified abdominal pain
CPT/HCPCS: 36591; 73630; 74177; 80053; 81003; 83690; 85025; 96361; 96374; 97161; 99283; 99285; J1885; Q9967